=== PATIENT | female | born 1940 | race Caucasian/White ===

== ENCOUNTER 2021-06-20 13:28 | Emergency (ER) | payer MEDICARE, MEDICAID, SELFPAY ==
--- NOTE | ~2021-06-20 | XR_ITS ---
EXAMINATION: XR hand RT min 3V DATE: 06/20/2021 14:06 INDICATION: Pain and swelling at the third proximal interphalangeal joint and second and third metaca rpophalangeal joints TECHNIQUE: Posteroanterior, oblique and lateral views of the right hand were obtained. COMPARISON: None. FINDINGS: 2-3 mm ulnar minus variance. Severe osteoarthritis at the first carpometacarpal joint with slight jovi sebastian subluxation and remodeling at the base of the first metacarpal. Alignment is otherwise normal. No fracture. Additional moderate osteoarthritis with slight palmar subluxation at the second and third metacarpophalangeal joints and at the second, fourth and fifth distal interphalangeal joints. Mild os teoarthritis at the distal radioulnar, triscaphe, and remaining metacarpophalangeal and interphalange al joints. No erosions to suggest an inflammatory arthritis. Diffuse osteopenia. Soft tissue swelling about the second and third metacarpophalangeal joints. IMPRESSION: 1. No acute osseous abnormality. 2. 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 Reviewed, dictated and finalized at location A. [facility] CHIEF IMPRESSION: 1. No acute osseous abnormality. 2. 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
[2021-06-20 13:44] VITALS: BP 133/82; PULSE 109; RESP 20; TEMP 37.3; O2SAT 98
--- NOTE | 2021-06-20 15:04 | ED.UPPEXIN ---
HPI - Extremity Injury (Upper) General Chief Complaint: Extremity Injury, Upper Stated Complaint: Right Hand Injury Time Seen by Provider: 06/20/21 14:49 Source: patient and RN notes reviewed Mode of arrival: ambulatory Limitations: no limitations History of Present Illness HPI narrative: Patient presents today complaining of right hand injury, swelling 3 days ago. She flicked something with her right third finger and had immediate swelling to her third MCP area that bruised. Denies numbness or tingling. Currently rates her pain 4/10, which increases with movement. She has been taking Decker with some relief. MD complaint: injury to: hand Related Data Home Medications Medication Instructions Recorded Confirmed ergocalciferol (vitamin D2) 1,250 mcg PO WEEKLY 06/20/21 06/20/21 hydrocodone-acetaminophen 1 tablet PO QID PRN 06/20/21 06/20/21 lisinopril-hydrochlorothiazide 1 tablet PO DAILY 06/20/21 06/20/21 nortriptyline 50 mg PO DAILY 06/20/21 06/20/21 Allergies Allergy/AdvReac Type Severity Reaction Status Date / Time morphine Allergy Severe made me Verified 06/20/21 13:45 [facility] Review of Systems Review of Systems: CONSTITUTIONAL: Denies body aches, fever, chills, or sweats. EYES: Denies visual changes, redness, or discharge. ENT: Denies rhinorrhea, congestion, sore throat, or otalgia. CARDIOVASCULAR: Denies chest pain, palpitations, or edema. RESPIRATORY: Denies cough or dyspnea. GASTROINTESTINAL: Denies abdominal pain, nausea, vomiting, or diarrhea. GENITOURINARY: Denies dysuria or hematuria. SKIN: Denies rash, itching, or wounds. MUSCULOSKELETAL: Denies back pain, or myalgia.+ Hand injury NEUROLOGIC: Denies headache, numbness, tingling, or weakness. PSYCH: Denies depression or anxiety. PMFSH Comments At time of signature, I have reviewed and agree with nursing past medical, surgical, social and family history unless otherwise noted. Please see nursing chart for further information. There is no relevant family history pertinent to the presenting complaint Exam Narrative: GENERAL: Well-appearing, well-nourished, and in no acute distress. HEAD: Normocephalic, atraumatic. EYES: EOMI. No redness or drainage. Conjunctivae normal. ENT: Mucous membranes pink and moist. NECK: Normal AROM. CHEST: No respiratory distress. EXTREMITIES: Right hand: Mild to moderate swelling at the third MCP with localized ecchymosis. Pain with movement of the finger. Distal sensation intact. Capillary refill normal. SKIN: Warm, dry, no rash. Capillary refill normal. Normal skin turgor. NEURO: No focal deficits. Alert and oriented x3. Gait steady. PSYCH: Normal affect. No signs of depression or anxiety. Course Vital Signs Vital signs: Vital Signs Temperature 99.1 F 06/20/21 13:44 Pulse Rate 109 H 06/20/21 13:44 Respiratory Rate 20 06/20/21 13:44 Blood Pressure 133/82 06/20/21 13:44 Pulse Oximetry 98 06/20/21 13:44 Temperature 99.1 F 06/20/21 13:44 Pulse Rate 109 H 06/20/21 13:44 Respiratory Rate 20 06/20/21 13:44 Blood Pressure 133/82 06/20/21 13:44 Pulse Oximetry 98 06/20/21 13:44 Reviewed. Pt has been instructed to follow up with her PCP regarding her elevated blood pressure today. MDM - Extremity Injury (Upper) Differential Diagnosis Differential diagnosis: Likely other (Cellulitis, hematoma, contusion) Imaging Data Radiologist's impression: ITS Impressions Hand X-Ray 06/20/21 14:09 IMPRESSION: 1. No acute osseous abnormality. 2. 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 Critical Care Time Critical Care Time Critical Care Time: No Discharge Plan Discharge Clinical Impression: Traumatic hematoma of right hand Qualifiers: Encounter type: initial encounter Qualified Code(s): S60.221A - Contusion of right hand, initial encounter Patient Disposition: Home, Self-Care Co
== END 2021-06-20 15:15 | disposition home or self-care (01) ==
PROVIDERS: Emergency Provider Nurse Practitioner
DX: S60.221A Contusion of right hand, initial encounter (principal); Z79.891 Long term (current) use of opiate analgesic; W22.8XXA Striking against or struck by other objects, initial encounter
CPT/HCPCS: 73130; 99203; G0463